=== PATIENT | female | born 1990 | race African-American/Black ===

== ENCOUNTER 2020-03-17 13:04 | Emergency (ER) | payer SELFPAY ==
[2020-03-17] MEDS ORDERED: SODIUM BICARBONATE 8.4% INJ 50 MEQ/50 ML DISP.SYRIN ONE ×4 (13:08→14:00)
[2020-03-17] MEDS ORDERED: EPINEPHRINE INJ 1 MG/10 ML DISP.SYRIN ONE ×3 (13:21→14:00)
[2020-03-17] MEDS ORDERED: EPINEPHRINE INJ/PF 1 MG/1 ML AMPULE ONE (13:26)
[2020-03-17] MEDS ORDERED: NALOXONE HCL INJ 2 MG/2 ML DISP.SYRIN ONE ×2 (13:29)
--- NOTE | 2020-03-17 13:58 | ER Document Report ---
ED Cardiac - General Stated Complaint: UNRESPONSIVE Time Seen by Provider: 03/17/20 13:43 Primary Care Provider: RISHI POWELL MD [Primary Care Provider] - Follow up as needed Notes: 29-year-old female was brought into the ER with CPR in progress. According to family the patient called them and stated she was not feeling well. She had thrown up. Got her some ice water. They decided to drive her to the hospital. On the way to the hospital the patient lost consciousness. Upon arrival ER staff went immediately to the car and found her to be pulseless and apneic in the back of the car. CPR was started immediately and the patient was brought back to the trauma room. Family states that she just kept stating she does not feel good. No known fever chills cough or sore throat. She did have several episodes of emesis which was watery. They did not say she complained of any chest pain or trouble breathing. Past Medical History - Social History Smoking Status: Unknown if Ever Smoked Family History: Reviewed & Not Pertinent Review of Systems - Review of Systems -: Yes ROS unobtainable due to patient's medical condition Physical Exam - Notes Notes: GENERAL_APPEARANCE: Pulseless apneic CPR in progress VITALS: reviewed, see vital signs table. HEAD: no_swelling on the head. EYES: Pupils and unreactive conjunctiva_clear - 9mm equal. NOSE: no_nasal_discharge. MOUTH: (-)decreased moisture. THROAT: no_tonsilar_inflammation, no_airway_obstruction. no_lymphadenopathy, advanced airway present NECK: supple, negative JVD or trachea deviation CHEST_WALL: Negative subcutaneous emphysema LUNGS: no_wheezing, no_rales, no_rhonchi, (-)accessory muscle use, good air exchange bilateral. HEART: Asystole on the monitor, bedside ultrasound shows no cardiac motion ABDOMEN: No obvious masses no bowel sounds, mild distention EXTREMITIES: Cool, no pulses present no obvious wounds or trauma SKIN: Cold ashen, MENTAL_STATUS: Unresponsive Neuro: Does not withdraw to pain has no blink reflex, not breathing above bagging Course - Re-evaluation Re-evalutation: 03/17/20 13:55 29-year-old female was brought back to the resuscitation bay CPR in progress. Initial presenting rhythm was PEA sinus rhythm which varied between 30s to 140s. Seem to be very dependent upon epinephrine. Bedside ultrasound FAST exam was negative for any free fluid in the abdomen. Heart showed no large effusion. There was fleeting cardiac motion noted. The patient did have several episodes of having a very faint pulse. This would be followed by bradycardia and repeat arrest. We continue with epi and hung an epi drip during 1 of the rosc episodes. The patient seemed to never maintain a pulse for over 1 to 2 minutes. We continued resuscitative efforts we checked the patient's blood sugar to be above 90. We gave Narcan. Patient was given bicarbonate calcium. Multiple rounds of epinephrine. After over 40 minutes the patient bradycardia down to a rate of 20-30 and a more wide-complex rhythm now. There was no pulse no motion of the heart. After extensive resuscitative efforts CO2 was down to around 8. At that time the time of was 1340 I did speak with the siblings who are present. Discharge - Discharge Clinical Impression: Cardiac arrest Condition: Critical Disposition: Referrals: RISHI POWELL MD [Primary Care Provider] - Follow up as needed
[2020-03-17] MEDS ORDERED: CALCIUM GLUCONATE 1000 MG/10 ML INJ IV ONE (14:00)
== END 2020-03-17 19:07 | disposition expired ==
LOC: ER 13:04
DX: I46.9 Cardiac arrest, cause unspecified (principal)
CPT/HCPCS: 99285; 96374; 82962; J0610; J0171 ×2; J3490; J2310